=== PATIENT | male | born 1970 | race Caucasian/White ===

== ENCOUNTER 2025-03-24 00:06 | Emergency (ER) | payer MEDICAID ==
[~2025-03-24] VITALS: Ht 177.8 cm; Wt 79.4 kg
[2025-03-24 00:22] VITALS: O2SAT 98
== END 2025-03-24 00:39 | disposition left against medical advice (07) ==
LOC: ER 00:20
DX: M25.531 Pain in right wrist (principal); F91.9 Conduct disorder, unspecified; W18.39XA Other fall on same level, initial encounter; Y93.89 Activity, other specified; Y92.89 Other specified places as the place of occurrence of the external cause; Y99.8 Other external cause status
CPT/HCPCS: A4606; A4663